=== PATIENT | male | born 1965 | race Caucasian/White ===

== ENCOUNTER → 2016-06-08 | Outpatient (REF) | payer MEDICARE, MEDICAID ==
[~2016-06-08] MED LIST: /ONDA4TA PO; ATIV0.5T OR; BACT800T PO; FERROUS SULFATE PO; FLUC10TA PO; HEPARIN LOCK FLUSH IV; MARINOL PO; MEGE40TA2 OR; MULTCAP PO; NEUR300C PO; PERCOCET PO; SLF IV; TIVI1TAB PO; TRAM50TA2 OR; TYLENOL PO; VITA500C10 PO; VITAMIN C PO; ZITH600T PO; ZOFR20TA PO; ZOFR8TAB PO; [UNRECOGNIZED DRUG - CODE] IV; [UNRECOGNIZED DRUG - CODE] PO; [UNRECOGNIZED DRUG - CODE] PO; [UNRECOGNIZED DRUG - OTHER] PO; prezista PO; truvada PO
[2016-06-08 13:08] LABS: ALBUMIN 4.1 GM/DL (3.2-5.2); ALBUMIN/GLOBULIN RATIO 1.05 (1.00-1.93); ALKALINE PHOSPHATASE 69 U/L (45-117); ALT/SGPT 30 U/L (12-78); ANION GAP 9 MEQ/L (8-16); AST/SGOT 20 U/L (15-37); BILIRUBIN,TOTAL 0.6 MG/DL (0.2-1.0); BLOOD UREA NITROGEN 22 MG/DL (7-18); CALCIUM LEVEL 9.3 MG/DL (8.5-10.1); CARBON DIOXIDE LEVEL 29 MEQ/L (21-32); CHLORIDE LEVEL 101 MEQ/L (98-107); CHOLESTEROL LEVEL 238 MG/DL (<200); GLOMERULAR FILTRATION RATE 42.7 (>56); GLUCOSE, FASTING 91 MG/DL (70-105); POTASSIUM SERUM 3.7 MEQ/L (3.5-5.1); SODIUM LEVEL 139 MEQ/L (136-145); TRIGLYCERIDES LEVEL 158 MG/DL (<150)
[2016-06-09 14:16] LABS: %CD3+CD4+CD8+ 2.3 % (Not Estab.); %CD3+CD4+CD8- 27.4 % (Not Estab.); %CD3+CD4-CD8+ 37.9 % (Not Estab.); %CD3+CD4-CD8- 1.8 % (Not Estab.); ABS CD3+CD4+CD8+ 41 /uL (Not Estab.); ABS CD3+CD4+CD8- 493 /uL (Not Estab.); ABS CD3+CD4-CD8+ 682 /uL (Not Estab.); ABS CD3+CD4-CD8- 32 /uL (Not Estab.); CD4/CD8 NYSDOH RATIO 0.72 (Not Estab.); Eosinophils 1 % (.); HCT 49.8 % (37.5-51.0); Monocytes 11 % (.); Neutrophils 54 % (.); WBC 5.3 x10E3/uL (3.4-10.8)
== END ==
LOC: M SFHCPLAZ 09:29
PROVIDERS: ATTEND Internal Medicine Infectious Disease
DX: B20 Human immunodeficiency virus [HIV] disease (principal); I10 Essential (primary) hypertension; Z23 Encounter for immunization; L60.8 Other nail disorders; R60.0 Localized edema; M47.22 Other spondylosis with radiculopathy, cervical region; Z85.828 Personal history of other malignant neoplasm of skin; A35 Other tetanus; A39.8 Other meningococcal infections; Z11.3 Encounter for screening for infections with a predominantly sexual mode of transmission
CPT/HCPCS: 36415; 80053; 80061; 86360; 86780; 87491; 87536; 87591; 90472; 90715; G0463

== ENCOUNTER → 2016-06-15 | Outpatient (REF) | payer MEDICARE, MEDICAID ==
[2016-06-15 14:09] LABS: CALCIUM LEVEL 9.2 MG/DL (8.5-10.1); CREATININE FOR GFR 1.92 MG/DL (0.70-1.30); GLOMERULAR FILTRATION RATE 39.7 (>56); POTASSIUM SERUM 3.4 MEQ/L (3.5-5.1)
[2016-06-16 16:12] LABS: MICROSCOPIC INDICATED? MAN YES (NO)
[2016-06-16 16:26] LABS: BACTERIA, URINE NONE SEEN; HYALINE CAST, URINE NONE SEEN /lpf (0-1); MICROSCOPIC EXAM PERFORMED; RBC, URINE NONE SEEN /hpf (0-3); SQUAMOUS EPITHELIAL CELL URINE SMALL AMOUNT /hpf (SMALL AMT); WBC, URINE NONE SEEN /hpf (0-3)
== END ==
LOC: M SFHCPLAZ 10:48
PROVIDERS: ATTEND Internal Medicine Infectious Disease
DX: I10 Essential (primary) hypertension (principal)

== ENCOUNTER → 2016-06-15 | Outpatient (CLI) | payer MEDICARE, MEDICAID ==
--- NOTE | 2016-06-16 05:42 | ECHO ---
DATE OF PROCEDURE: 06/15/2016 REFERRING PHYSICIAN: Dr. Joana Atkinson. INDICATION: Localized edema. HEIGHT: 69 inches. WEIGHT: 225 pounds. MEASUREMENTS: Ventricular septum: 1.18 cm Posterior wall: 1.13 cm Left ventricle diastole: 4.5 cm Left atrium: 3.6 cm LVOT: 1.95 cm Aortic valve annulus: 2.1 cm Aortic root: 3.7 cm Proximal ascending aorta: 3.3 cm Inferior vena cava: 1.8 cm (more than 50% respiratory variation). DOPPLER MEASUREMENTS: Aortic valve velocity: 112 cm/s LVOT velocity: 94.0 cm/s LVOT VTI: 19.5 cm Mitral E velocity: 73.4 cm/s Mitral A velocity: 43.5 cm/s Mitral deacceleration time: 190 ms Mild tricuspid regurgitation. Estimated right ventricular systolic pressure 29 mmHg assuming an atrial pressure of 5 mmHg. Mild pulmonic regurgitation. Pulmonary artery systolic pressure 24 mmHg by pulmonary acceleration time method. MITRAL ANNULAR TISSUE DOPPLER: E-prime septal: 6.7 cm/s E-prime lateral: 14.1 cm/s DESCRIPTION: Rhythm was sinus. Image quality was fair. This was a 2D, M-mode, color flow Doppler and pulsed wave Doppler examination and included mitral annular tissue Doppler. No pericardial effusion. CONCLUSIONS: 1. Normal left ventricle internal dimensions and wall thickness. No regional wall motion abnormalities. Normal LV systolic function. LVEF 60% by visual estimate. Normal LV diastolic function. 2. Mild aortic valve sclerosis of a 3-cusp aortic valve. No aortic regurgitation. 3. Suggestive of normal pulmonary artery systolic pressure and estimated right ventricle systolic pressure. Central venous pressure estimated to be 5-10 mmHg. 4. Otherwise normal appearing echocardiogram Doppler.
== END ==
LOC: M CARPUL 08:08
PROVIDERS: ATTEND Internal Medicine Infectious Disease
DX: R60.0 Localized edema (principal); I10 Essential (primary) hypertension
CPT/HCPCS: 36415; 80048; 81000; 93306; G0463

== ENCOUNTER → 2016-06-22 | Outpatient (CLI) | payer MEDICARE, MEDICAID ==
--- NOTE | 2016-06-22 09:00 | REP ---
REASON: Renal disease. COMPARISON: Ultrasound none. FINDINGS: Multiple ultrasonographic images of the right kidney show the right kidney to measure 10.8 x 4.9 x 4.8 cm. The renal cortical echotexture is unremarkable. There are no masses. There is good corticomedullary differentiation. There is no hydronephrosis. There are no perinephric fluid collections. Multiple ultrasonographic images of the right kidney show the left kidney to measure 11.3 x 5.2 x 5.9 cm. The renal cortical echotexture is unremarkable. There are no masses. There is good corticomedullary differentiation. There is no hydronephrosis. There are no perinephric fluid collections. There is a mild increase in the renal sinus fat bilaterally. IMPRESSION: Unremarkable renal ultrasonography. Signed by Dajuan Gillette DO 06/22/2016 09:02 A
== END ==
LOC: M RAD 08:08
PROVIDERS: ATTEND Internal Medicine Infectious Disease
DX: N18.9 Chronic kidney disease, unspecified (principal)

== ENCOUNTER → 2016-07-12 | Outpatient (REF) | payer MEDICARE, MEDICAID ==
[2016-07-12 12:59] LABS: CALCIUM LEVEL 8.5 MG/DL (8.5-10.1); CREATININE FOR GFR 1.55 MG/DL (0.70-1.30); GLOMERULAR FILTRATION RATE 50.8 (>56); POTASSIUM SERUM 4.2 MEQ/L (3.5-5.1)
== END ==
LOC: M SFHCPLAZ 09:55
PROVIDERS: ATTEND Internal Medicine Infectious Disease
DX: B20 Human immunodeficiency virus [HIV] disease (principal); M47.22 Other spondylosis with radiculopathy, cervical region; R63.5 Abnormal weight gain; N18.3 Chronic kidney disease, stage 3 (moderate); I12.9 Hypertensive chronic kidney disease with stage 1 through stage 4 chronic kidney disease, or unspecified chronic kidney disease; E78.2 Mixed hyperlipidemia
CPT/HCPCS: 36415; 80048; G0463

== ENCOUNTER → 2016-10-13 | Outpatient (REF) | payer MEDICARE, MEDICAID ==
[2016-10-13 17:59] LABS: ALBUMIN 3.9 GM/DL (3.2-5.2); ALBUMIN/GLOBULIN RATIO 0.98 (1.00-1.93); ALKALINE PHOSPHATASE 76 U/L (45-117); ALT/SGPT 52 U/L (12-78); AST/SGOT 30 U/L (15-37); BILIRUBIN,DIRECT 0.2 MG/DL (0.0-0.2); BILIRUBIN,TOTAL 0.6 MG/DL (0.2-1.0); COMPLEMENT C3 120 MG/DL (90-180); COMPLEMENT C4 30.4 MG/DL (10-40); TOTAL PROTEIN 7.9 GM/DL (6.4-8.2)
[2016-10-13 19:18] LABS: BACTERIA, URINE NONE SEEN; MICROSCOPIC EXAM PERFORMED; RBC, URINE 0-1 /hpf (0-3); SQUAMOUS EPITHELIAL CELL URINE NONE SEEN /hpf (SMALL AMT)
== END ==
LOC: M LAB REF 17:03
PROVIDERS: ATTEND Internal Medicine Nephrology
DX: N18.3 Chronic kidney disease, stage 3 (moderate) (principal); B20 Human immunodeficiency virus [HIV] disease

== ENCOUNTER → 2016-10-18 | Outpatient (CLI) | payer MEDICARE, MEDICAID ==
--- NOTE | 2016-10-18 14:26 | REP ---
RENAL NUCLEAR SCAN WITH FLOW AND FUNCTION: Following the intravenous administration of 8.8 millicuries technetium, 99m Mag3, immediate flow images are obtained of the kidneys in the posterior projection. There is initially somewhat greater degree of perfusion of the left kidney compared to the right. Delayed renal function images are performed of the kidneys in the posterior projection every minute for a period of 30 minutes. There is bilateral cortical uptake and washout, with bilateral excretion. There is no evidence of hydronephrosis or urinary tract obstruction. Split function is 46% on the left and 54% on the right. [id number] is normal bilaterally at 2 minutes. T-1/2 is normal bilaterally, 5 minutes on the left and 7.1 minutes on the right. Renal function curves are normal in their downward slopes. There is very mild post-void residual in the urinary bladder after voiding. IMPRESSION: Essentially normal renal function bilaterally. No evidence of urinary tract obstruction. Signed by Cristo Ware MD 10/19/2016 08:41 A
== END ==
LOC: M RAD 12:31
PROVIDERS: ATTEND Internal Medicine Nephrology
DX: N18.3 Chronic kidney disease, stage 3 (moderate) (principal); B20 Human immunodeficiency virus [HIV] disease
CPT/HCPCS: 78707; A9562

== ENCOUNTER → 2016-12-06 | Outpatient (REF) | payer MEDICARE, MEDICAID ==
[2016-12-06 13:57] LABS: ALBUMIN 3.9 GM/DL (3.2-5.2); ALBUMIN/GLOBULIN RATIO 1.08 (1.00-1.93); BILIRUBIN,TOTAL 0.6 MG/DL (0.2-1.0); CALCIUM LEVEL 8.5 MG/DL (8.5-10.1); CREATININE FOR GFR 1.66 MG/DL (0.70-1.30); GLOMERULAR FILTRATION RATE 46.9 (>56); POTASSIUM SERUM 4.4 MEQ/L (3.5-5.1); TOTAL PROTEIN 7.5 GM/DL (6.4-8.2)
[2016-12-07 14:12] LABS: Eosinophils 2 % (.); HCT 49.1 % (37.5-51.0); HGB 16.6 g/dL (12.6-17.7); Monocytes 10 % (.); Neutrophils 55 % (.); WBC 5.1 x10E3/uL (3.4-10.8)
== END ==
LOC: M SFHCPLAZ 09:32
PROVIDERS: ATTEND Internal Medicine Infectious Disease
DX: B20 Human immunodeficiency virus [HIV] disease (principal); E78.2 Mixed hyperlipidemia; R63.5 Abnormal weight gain; Z23 Encounter for immunization
CPT/HCPCS: 36415; 80053; 80061; 84443; 86360; 87536; 90472; 90686; G0008; G0463

== ENCOUNTER → 2017-03-31 | Outpatient (REF) | payer MEDICARE, MEDICAID ==
[2017-03-31 12:10] LABS: ALBUMIN 4.1 GM/DL (3.2-5.2); ALBUMIN/GLOBULIN RATIO 1.21 (1.00-1.93); ALKALINE PHOSPHATASE 82 U/L (45-117); ALT/SGPT 76 U/L (12-78); ANION GAP 7 MEQ/L (8-16); AST/SGOT 49 U/L (7-37); BILIRUBIN,TOTAL 0.6 MG/DL (0.2-1.0); BLOOD UREA NITROGEN 19 MG/DL (7-18); CALCIUM LEVEL 8.6 MG/DL (8.5-10.1); CARBON DIOXIDE LEVEL 27 MEQ/L (21-32); CHLORIDE LEVEL 107 MEQ/L (98-107); CHOLESTEROL LEVEL 138 MG/DL (<200); CHOLESTEROL RISK RATIO 3.209 (<5); CREATININE FOR GFR 1.61 MG/DL (0.70-1.30); GLOMERULAR FILTRATION RATE 48.4 (>56); GLUCOSE, FASTING 102 MG/DL (70-105); HDL CHOLESTEROL 43 MG/DL (>40); NON-HDL-C 95 MG/DL; POTASSIUM SERUM 4.5 MEQ/L (3.5-5.1); SODIUM LEVEL 141 MEQ/L (136-145); TOTAL PROTEIN 7.5 GM/DL (6.4-8.2); TRIGLYCERIDES LEVEL 115 MG/DL (<150)
[2017-03-31 14:30] LABS: AMORPHOUS SEDIMENT SMALL (NEGATIVE); APPEARANCE, URINE TURBID (CLEAR); BACTERIA, URINE AUTO NEGATIVE (NEGATIVE); BILIRUBIN, URINE AUTO NEGATIVE (NEGATIVE); BLOOD, URINE BLOOD NEGATIVE (NEGATIVE); COLOR, URINE AMBER (YELLOW); GLUCOSE, URINE (UA) AUTO NEGATIVE (NEGATIVE); KETONE, URINE AUTO NEGATIVE (NEGATIVE); LEUKOCYTE ESTERASE, URINE AUTO NEGATIVE (NEGATIVE); MUCUS, URINE SMALL (NEGATIVE); NITRITE, URINE AUTO NEGATIVE (NEGATIVE); PROTEIN, URINE AUTO NEGATIVE (NEGATIVE); RBC, URINE AUTO 0 /HPF (0-3); SPECIFIC GRAVITY URINE AUTO 1.024 (1.002-1.035); SQUAMOUS EPITHELIAL CELL UR AU 0 /HPF (0-6); UROBILINOGEN, URINE AUTO 0.2 mg/dL (0.0-2.0); WBC, URINE AUTO 0 /HPF (0-3)
[2017-03-31 16:15] LABS: CHLAMYDIA DNA AMPLIFICATION NEGATIVE (NEGATIVE); GC DNA AMPLIFICATION NEGATIVE (NEGATIVE)
[2017-04-02 08:06] LABS: QUANTIFERON GOLD TB Negative (Negative); TB Test (QFT) Antigen 0.02 IU/mL (.); TB Test (QFT) Mitogen >10.00 IU/mL (.); TB Test (QFT) Nil 0.02 IU/mL (.)
[2017-04-05 00:06] LABS: % CD8 Pos Lymph 37.6 % (12.0-35.5); %CD4 Pos Lymphs 33.4 % (30.8-58.5); ABS Eosinophils 0.1 x10E3/uL (0.0-0.4); ABS Lymphs 1.3 x10E3/uL (0.7-3.1); ABS Monocytes 0.5 x10E3/uL (0.1-0.9); ABS Neutophils 3.3 x10E3/uL (1.4-7.0); Abs CD4 Helper 434 /uL (359-1519); Abs CD8 Suppres 489 /uL (109-897); CD4/CD8 Ratio 0.89 (0.92-3.72); Eosinophils 1 % (Not Estab.); HCT 49.6 % (37.5-51.0); HGB 16.6 g/dL (13.0-17.7); HIV-1 RNA PCR QUANT 2 LC550285 <20 copies/mL (.); Immature Grans 0 % (Not Estab.); Lymphocytes 25 % (Not Estab.); MCH 32.1 pg (26.6-33.0); MCHC 33.5 g/dL (31.5-35.7); MCV 96 fL (79-97); Monocytes 10 % (Not Estab.); Neutrophils 63 % (Not Estab.); Platelets 269 x10E3/uL (150-379); RBC 5.17 x10E6/uL (4.14-5.80); RDW 13.9 % (12.3-15.4); WBC 5.3 x10E3/uL (3.4-10.8)
== END ==
LOC: M SFHCPLAZ 08:06
DX: B20 Human immunodeficiency virus [HIV] disease (principal); E78.2 Mixed hyperlipidemia; M47.22 Other spondylosis with radiculopathy, cervical region; R63.5 Abnormal weight gain; I12.9 Hypertensive chronic kidney disease with stage 1 through stage 4 chronic kidney disease, or unspecified chronic kidney disease; N18.3 Chronic kidney disease, stage 3 (moderate); Z23 Encounter for immunization; C44.319 Basal cell carcinoma of skin of other parts of face
CPT/HCPCS: 80053

== ENCOUNTER → 2017-07-25 | Outpatient (REF) | payer MEDICARE, MEDICAID ==
[2017-07-25 12:59] LABS: ALBUMIN 4.1 GM/DL (3.2-5.2); ALBUMIN/GLOBULIN RATIO 1.17 (1.00-1.93); ALKALINE PHOSPHATASE 83 U/L (45-117); ALT/SGPT 35 U/L (12-78); ANION GAP 6 MEQ/L (8-16); AST/SGOT 18 U/L (7-37); BILIRUBIN,TOTAL 0.6 MG/DL (0.2-1.0); BLOOD UREA NITROGEN 22 MG/DL (7-18); CALCIUM LEVEL 9.2 MG/DL (8.5-10.1); CARBON DIOXIDE LEVEL 26 MEQ/L (21-32); CHLORIDE LEVEL 109 MEQ/L (98-107); GLOMERULAR FILTRATION RATE 45.5 (>56); GLUCOSE, FASTING 97 MG/DL (70-100); POTASSIUM SERUM 4.2 MEQ/L (3.5-5.1); SODIUM LEVEL 141 MEQ/L (136-145); TOTAL PROTEIN 7.6 GM/DL (6.4-8.2)
[2017-07-29 00:07] LABS: % CD8 Pos Lymph 37.6 % (12.0-35.5); %CD4 Pos Lymphs 33.9 % (30.8-58.5); ABS Eosinophils 0.1 x10E3/uL (0.0-0.4); ABS Lymphs 1.7 x10E3/uL (0.7-3.1); ABS Monocytes 0.5 x10E3/uL (0.1-0.9); ABS Neutophils 2.9 x10E3/uL (1.4-7.0); Abs CD4 Helper 576 /uL (359-1519); Abs CD8 Suppres 639 /uL (109-897); Eosinophils 1 % (Not Estab.); HCT 49.6 % (37.5-51.0); HGB 16.6 g/dL (13.0-17.7); HIV-1 RNA PCR QUANT 2 LC550285 <20 copies/mL (.); Immature Grans 0 % (Not Estab.); Lymphocytes 32 % (Not Estab.); MCH 32.3 pg (26.6-33.0); MCHC 33.5 g/dL (31.5-35.7); MCV 97 fL (79-97); Monocytes 10 % (Not Estab.); Neutrophils 57 % (Not Estab.); Platelets 232 x10E3/uL (150-379); RBC 5.14 x10E6/uL (4.14-5.80); RDW 13.6 % (12.3-15.4); WBC 5.2 x10E3/uL (3.4-10.8)
== END ==
LOC: M SFHCPLAZ 08:41
DX: B20 Human immunodeficiency virus [HIV] disease (principal); R85.619 Unspecified abnormal cytological findings in specimens from anus
CPT/HCPCS: 80053

== ENCOUNTER → 2017-12-06 | Outpatient (REF) | payer MEDICARE, MEDICAID ==
[2017-12-06 14:01] LABS: APPEARANCE, URINE CLEAR (CLEAR); BACTERIA, URINE AUTO NEGATIVE (NEGATIVE); BILIRUBIN, URINE AUTO NEGATIVE (NEGATIVE); BLOOD, URINE BLOOD NEGATIVE (NEGATIVE); COLOR, URINE YELLOW (YELLOW); GLUCOSE, URINE (UA) AUTO NEGATIVE (NEGATIVE); KETONE, URINE AUTO NEGATIVE (NEGATIVE); LEUKOCYTE ESTERASE, URINE AUTO NEGATIVE (NEGATIVE); MUCUS, URINE SMALL (NEGATIVE); NITRITE, URINE AUTO NEGATIVE (NEGATIVE); PROTEIN, URINE AUTO NEGATIVE (NEGATIVE); RBC, URINE AUTO 3 /HPF (0-3); SQUAMOUS EPITHELIAL CELL UR AU 0 /HPF (0-6); UROBILINOGEN, URINE AUTO 0.2 mg/dL (0.0-2.0); WBC, URINE AUTO 1 /HPF (0-3)
[2017-12-06 15:02] LABS: ALBUMIN 3.9 GM/DL (3.2-5.2); ALBUMIN/GLOBULIN RATIO 1.15 (1.00-1.93); ALKALINE PHOSPHATASE 85 U/L (45-117); ALT/SGPT 34 U/L (12-78); ANION GAP 11 MEQ/L (8-16); AST/SGOT 21 U/L (7-37); BILIRUBIN,TOTAL 0.6 MG/DL (0.2-1.0); BLOOD UREA NITROGEN 18 MG/DL (7-18); CALCIUM LEVEL 8.9 MG/DL (8.5-10.1); CARBON DIOXIDE LEVEL 24 MEQ/L (21-32); CHLORIDE LEVEL 103 MEQ/L (98-107); CHOLESTEROL LEVEL 171 MG/DL (<200); CHOLESTEROL RISK RATIO 4.275 (<5); CREATININE FOR GFR 1.55 MG/DL (0.70-1.30); GLOMERULAR FILTRATION RATE 50.6 (>56); GLUCOSE, FASTING 76 MG/DL (70-100); HDL CHOLESTEROL 40 MG/DL (>40); LDL CHOLESTEROL 88 MG/DL (<100); NON-HDL-C 131 MG/DL; POTASSIUM SERUM 4.1 MEQ/L (3.5-5.1); SODIUM LEVEL 138 MEQ/L (136-145); TOTAL PROTEIN 7.3 GM/DL (6.4-8.2); TRIGLYCERIDES LEVEL 215 MG/DL (<150)
[2017-12-09 00:06] LABS: % CD8 Pos Lymph 35.6 % (12.0-35.5); %CD4 Pos Lymphs 33.1 % (30.8-58.5); ABS Eosinophils 0.1 x10E3/uL (0.0-0.4); ABS Lymphs 1.5 x10E3/uL (0.7-3.1); ABS Monocytes 0.5 x10E3/uL (0.1-0.9); Abs CD4 Helper 497 /uL (359-1519); Abs CD8 Suppres 534 /uL (109-897); CD4/CD8 Ratio 0.93 (0.92-3.72); Eosinophils 2 % (Not Estab.); HCT 48.8 % (37.5-51.0); HGB 16.6 g/dL (13.0-17.7); HIV-1 RNA PCR QUANT 2 LC550285 <20 copies/mL (.); Immature Grans 0 % (Not Estab.); Lymphocytes 30 % (Not Estab.); MCV 94 fL (79-97); Monocytes 10 % (Not Estab.); Neutrophils 58 % (Not Estab.); Platelets 248 x10E3/uL (150-379); RBC 5.18 x10E6/uL (4.14-5.80); RDW 13.9 % (12.3-15.4); WBC 5.1 x10E3/uL (3.4-10.8)
== END ==
LOC: M SFHCPLAZ 12:15
DX: B20 Human immunodeficiency virus [HIV] disease (principal); I12.9 Hypertensive chronic kidney disease with stage 1 through stage 4 chronic kidney disease, or unspecified chronic kidney disease; E78.2 Mixed hyperlipidemia; Z23 Encounter for immunization
CPT/HCPCS: 84443

== ENCOUNTER → 2018-03-21 | Outpatient (REF) | payer MEDICARE, MEDICAID ==
[~2018-03-21] MED LIST changes: +ALIN1SUS2 PO; -ZOFR20TA PO; +ZOFR4TAB16 PO; -[UNRECOGNIZED DRUG - CODE] PO
[2018-03-21 13:13] LABS: ALBUMIN 3.9 GM/DL (3.2-5.2); BILIRUBIN,TOTAL 0.6 MG/DL (0.2-1.0); CALCIUM LEVEL 9.1 MG/DL (8.5-10.1); CREATININE FOR GFR 1.69 MG/DL (0.70-1.30); GLOMERULAR FILTRATION RATE 45.6 (>56); POTASSIUM SERUM 4.4 MEQ/L (3.5-5.1); TOTAL PROTEIN 7.7 GM/DL (6.4-8.2)
[2018-03-21 16:21] LABS: APPEARANCE, URINE HAZY (CLEAR); BACTERIA, URINE AUTO NEGATIVE (NEGATIVE); BILIRUBIN, URINE AUTO NEGATIVE (NEGATIVE); BLOOD, URINE BLOOD NEGATIVE (NEGATIVE); CALCIUM OXALATE CRYSTALS SMALL; COLOR, URINE AMBER (YELLOW); GLUCOSE, URINE (UA) AUTO NEGATIVE (NEGATIVE); KETONE, URINE AUTO NEGATIVE (NEGATIVE); LEUKOCYTE ESTERASE, URINE AUTO NEGATIVE (NEGATIVE); MUCUS, URINE SMALL (NEGATIVE); NITRITE, URINE AUTO NEGATIVE (NEGATIVE); PROTEIN, URINE AUTO 1+ mg/dL (NEGATIVE); RBC, URINE AUTO 2 /HPF (0-3); SQUAMOUS EPITHELIAL CELL UR AU 0 /HPF (0-6); UROBILINOGEN, URINE AUTO 0.2 mg/dL (0.0-2.0); WBC, URINE AUTO 1 /HPF (0-3)
[2018-03-22 10:24] LABS: HEPATITIS C VIRUS ABY INDEX 0.1 INDEX (<0.8)
[2018-03-24 00:06] LABS: % CD8 Pos Lymph 35.9 % (12.0-35.5); %CD4 Pos Lymphs 33.7 % (30.8-58.5); ABS Eosinophils 0.1 x10E3/uL (0.0-0.4); ABS Lymphs 1.7 x10E3/uL (0.7-3.1); ABS Monocytes 0.6 x10E3/uL (0.1-0.9); ABS Neutophils 4.9 x10E3/uL (1.4-7.0); Abs CD4 Helper 573 /uL (359-1519); Abs CD8 Suppres 610 /uL (109-897); CD4/CD8 Ratio 0.94 (0.92-3.72); Eosinophils 1 % (Not Estab.); HCT 50.4 % (37.5-51.0); HGB 17.3 g/dL (13.0-17.7); HIV-1 RNA PCR QUANT 2 LC550285 <20 copies/mL (.); Immature Grans 0 % (Not Estab.); Lymphocytes 24 % (Not Estab.); MCH 32.7 pg (26.6-33.0); MCHC 34.3 g/dL (31.5-35.7); MCV 95 fL (79-97); Monocytes 8 % (Not Estab.); Neutrophils 67 % (Not Estab.); Platelets 254 x10E3/uL (150-379); RBC 5.29 x10E6/uL (4.14-5.80); RDW 13.8 % (12.3-15.4); WBC 7.4 x10E3/uL (3.4-10.8)
== END ==
LOC: M SFHCPLAZ 10:20
PROVIDERS: ATTEND Internal Medicine Infectious Disease
DX: B20 Human immunodeficiency virus [HIV] disease (principal)
CPT/HCPCS: 36415; 80053; 81001; 86360; 86480; 86803; 87536; G0463

== ENCOUNTER → 2018-06-21 | Outpatient (REF) | payer MEDICARE, MEDICAID ==
[~2018-06-21] MED LIST changes: -/ONDA4TA PO; +ONDA-1 PO; +ONDA-227 PO; -ZOFR8TAB PO
== END ==
LOC: M SFHCPLAZ 17:10
PROVIDERS: ATTEND Dermatology
DX: L02.91 Cutaneous abscess, unspecified (principal)

== ENCOUNTER → 2018-09-19 | Outpatient (REF) | payer MEDICARE, MEDICAID ==
[2018-09-19 13:59] LABS: APPEARANCE, URINE CLEAR (CLEAR); BACTERIA, URINE AUTO NEGATIVE (NEGATIVE); BILIRUBIN, URINE AUTO NEGATIVE (NEGATIVE); BLOOD, URINE BLOOD NEGATIVE (NEGATIVE); COLOR, URINE YELLOW (YELLOW); GLUCOSE, URINE (UA) AUTO NEGATIVE (NEGATIVE); KETONE, URINE AUTO NEGATIVE (NEGATIVE); LEUKOCYTE ESTERASE, URINE AUTO NEGATIVE (NEGATIVE); MUCUS, URINE SMALL (NEGATIVE); NITRITE, URINE AUTO NEGATIVE (NEGATIVE); PROTEIN, URINE AUTO NEGATIVE (NEGATIVE); RBC, URINE AUTO 0 /HPF (0-3); SPECIFIC GRAVITY URINE AUTO 1.025 (1.002-1.035); SQUAMOUS EPITHELIAL CELL UR AU 0 /HPF (0-6); UROBILINOGEN, URINE AUTO 0.2 mg/dL (0.0-2.0); WBC, URINE AUTO 1 /HPF (0-3)
[2018-09-19 14:18] LABS: ALBUMIN 3.6 GM/DL (3.2-5.2); ALT/SGPT 22 U/L (12-78); BILIRUBIN,TOTAL 0.5 MG/DL (0.2-1.0); BLOOD UREA NITROGEN 16 MG/DL (7-18); CALCIUM LEVEL 8.8 MG/DL (8.5-10.1); CARBON DIOXIDE LEVEL 28 MEQ/L (21-32); CHLORIDE LEVEL 108 MEQ/L (98-107); CREATININE FOR GFR 1.73 MG/DL (0.70-1.30); GLOMERULAR FILTRATION RATE 44.4 (>56); GLUCOSE, FASTING 95 MG/DL (70-100); POTASSIUM SERUM 4.6 MEQ/L (3.5-5.1); SODIUM LEVEL 141 MEQ/L (136-145); TOTAL PROTEIN 7.5 GM/DL (6.4-8.2)
[2018-09-19 15:58] LABS: CHLAMYDIA DNA AMPLIFICATION NEGATIVE (NEGATIVE); GC DNA AMPLIFICATION NEGATIVE (NEGATIVE)
[2018-09-22 14:09] LABS: % CD8 Pos Lymph 36.9 % (12.0-35.5); %CD4 Pos Lymphs 33.9 % (30.8-58.5); ABS Eosinophils 0.1 x10E3/uL (0.0-0.4); ABS Lymphs 1.5 x10E3/uL (0.7-3.1); ABS Monocytes 0.6 x10E3/uL (0.1-0.9); ABS Neutophils 3.3 x10E3/uL (1.4-7.0); Abs CD4 Helper 509 /uL (359-1519); Abs CD8 Suppres 554 /uL (109-897); CD4/CD8 Ratio 0.92 (0.92-3.72); CHLAMYDIA PHARYNGEAL APTIMA Negative (Negative); CHLAMYDIA RECTAL APTIMA Positive (Negative); Eosinophils 2 % (Not Estab.); GC PHARYNGEAL APTIMA Negative (Negative); GC RECTAL APTIMA Negative (Negative); HCT 46.4 % (37.5-51.0); HGB 15.3 g/dL (13.0-17.7); HIV-1 RNA PCR QUANT 2 LC550285 <20 copies/mL (.); Immature Grans 0 % (Not Estab.); Lymphocytes 28 % (Not Estab.); MCV 94 fL (79-97); Monocytes 11 % (Not Estab.); Neutrophils 59 % (Not Estab.); Platelets 266 x10E3/uL (150-450); RBC 4.94 x10E6/uL (4.14-5.80); RDW 14.3 % (12.3-15.4); WBC 5.5 x10E3/uL (3.4-10.8)
== END ==
LOC: M SFHCPLAZ 09:03
PROVIDERS: ATTEND Internal Medicine Infectious Disease
DX: B20 Human immunodeficiency virus [HIV] disease (principal); I12.9 Hypertensive chronic kidney disease with stage 1 through stage 4 chronic kidney disease, or unspecified chronic kidney disease
CPT/HCPCS: 36415; 80053; 81001; 86360; 86780; 87491; 87536; 87591; 88108; G0463

== ENCOUNTER 2018-10-18 15:07 | Emergency (ER) | payer MEDICARE, MEDICAID ==
[~2018-10-18] VITALS: Ht 175.3 cm; Wt 101.9 kg
[2018-10-18] MEDS ORDERED: TRAM50TA2 (15:24)
[2018-10-18 16:03] VITALS: BP 139/99
--- NOTE | 2018-10-18 19:42 | REP ---
LEFT FOOT, FOUR VIEWS: There is no evidence of an acute fracture, dislocation or intrinsic bone disease. IMPRESSION: No fracture or dislocation. Electronically Signed by Cristo Ware MD 10/19/2018 10:07 A
== END 2018-10-18 16:05 | disposition home or self-care (01) ==
LOC: M ED 15:07
DX: S93.602A Unspecified sprain of left foot, initial encounter (principal); X58.XXXA Exposure to other specified factors, initial encounter; Y92.89 Other specified places as the place of occurrence of the external cause; B20 Human immunodeficiency virus [HIV] disease; Z79.899 Other long term (current) drug therapy; Z79.891 Long term (current) use of opiate analgesic

== ENCOUNTER → 2019-03-27 | Outpatient (REF) | payer MEDICARE, MEDICAID ==
[~2019-03-27] MED LIST changes: +TRAM50TA2
[2019-03-27 10:34] LABS: APPEARANCE, URINE HAZY (CLEAR); BACTERIA, URINE AUTO NEGATIVE (NEGATIVE); BILIRUBIN, URINE AUTO NEGATIVE (NEGATIVE); BLOOD, URINE BLOOD NEGATIVE (NEGATIVE); COLOR, URINE YELLOW (YELLOW); GLUCOSE, URINE (UA) AUTO NEGATIVE (NEGATIVE); KETONE, URINE AUTO NEGATIVE (NEGATIVE); LEUKOCYTE ESTERASE, URINE AUTO NEGATIVE (NEGATIVE); MUCUS, URINE SMALL (NEGATIVE); NITRITE, URINE AUTO NEGATIVE (NEGATIVE); PROTEIN, URINE AUTO NEGATIVE (NEGATIVE); RBC, URINE AUTO 2 /HPF (0-3); SPECIFIC GRAVITY URINE AUTO 1.028 (1.002-1.035); SQUAMOUS EPITHELIAL CELL UR AU 0 /HPF (0-6); UROBILINOGEN, URINE AUTO 0.2 mg/dL (0.0-2.0); WBC, URINE AUTO 1 /HPF (0-3)
[2019-03-27 11:10] LABS: ALBUMIN 3.8 GM/DL (3.2-5.2); BILIRUBIN,TOTAL 0.5 MG/DL (0.2-1.0); CALCIUM LEVEL 8.6 MG/DL (8.5-10.1); CHOLESTEROL RISK RATIO 3.368 (<5); CREATININE FOR GFR 1.68 MG/DL (0.70-1.30); GLOMERULAR FILTRATION RATE 45.7 (>56); POTASSIUM SERUM 4.2 MEQ/L (3.5-5.1); TOTAL PROTEIN 7.4 GM/DL (6.4-8.2)
[2019-03-30 00:07] LABS: % CD8 Pos Lymph 39.4 % (12.0-35.5); %CD4 Pos Lymphs 30.4 % (30.8-58.5); ABS Eosinophils 0.1 x10E3/uL (0.0-0.4); ABS Lymphs 1.7 x10E3/uL (0.7-3.1); ABS Monocytes 0.6 x10E3/uL (0.1-0.9); ABS Neutophils 2.9 x10E3/uL (1.4-7.0); Abs CD4 Helper 517 /uL (359-1519); Abs CD8 Suppres 670 /uL (109-897); CD4/CD8 Ratio 0.77 (0.92-3.72); Eosinophils 2 % (Not Estab.); HCT 45.5 % (37.5-51.0); HGB 15.9 g/dL (13.0-17.7); HIV-1 RNA PCR QUANT 2 LC550285 <20 copies/mL (.); Immature Grans 0 % (Not Estab.); Lymphocytes 32 % (Not Estab.); MCH 31.9 pg (26.6-33.0); MCHC 34.9 g/dL (31.5-35.7); MCV 91 fL (79-97); Monocytes 11 % (Not Estab.); Neutrophils 55 % (Not Estab.); Platelets 252 x10E3/uL (150-450); RBC 4.98 x10E6/uL (4.14-5.80); RDW 13.9 % (11.6-15.4); WBC 5.4 x10E3/uL (3.4-10.8)
== END ==
LOC: M SFHCPLAZ 08:17
PROVIDERS: ATTEND Internal Medicine Infectious Disease
DX: B20 Human immunodeficiency virus [HIV] disease (principal); E78.2 Mixed hyperlipidemia
CPT/HCPCS: 36415; 80053; 80061; 81001; 86360; 86480; 87536; G0463

== ENCOUNTER 2019-05-24 07:36 | Day surgery (SDC) | payer MEDICARE, MEDICAID ==
[~2019-05-24] VITALS: Ht 175.3 cm; Wt 101.2 kg
[~2019-05-24 07:36] MED LIST changes: +ATOR1TAB21 PO; +FLON1SPR NARES; +LOSA50TA88 PO; +NS 1,000 ML IV ONE; -TRAM50TA2; +TRAM50TA2 PO; +TRIU1TAB PO; +VITA500C24 PO; +[UNRECOGNIZED DRUG - OTHER] TOP
[2019-05-24] MEDS ORDERED: propofoL 200 MG/20 ML VIAL As Ordered ONE ×3 (08:23→10:07)
[2019-05-24] MEDS ORDERED: LIDOCAINE 2% INJ 100 MG/5 ML SDV (FOR ANES.) As Ordered ONE (08:23)
--- NOTE | 2019-05-24 10:23 | ROOR ---
Patient Name: Wayne Manning Procedure Date: 05/24/2019 9:37 AM Date of : 1965 Age: 54 Room: [facility] Gender: Male Note Status: Finalized Procedure: Colonoscopy Indications: Hematochezia, Remote Hx CMV enterocolitis Providers: Jose Rafael CERVANTES MD Referring MD: Joana KELLOGG MD. Requesting Provider: Medicines: Monitored Anesthesia Care Complications: No immediate complications. Procedure: Pre-Anesthesia Assessment: - The heart rate, respiratory rate, oxygen saturations, blood pressure, adequacy of pulmonary ventilation, and response to care were monitored throughout the procedure. The Colonoscope was introduced through the anus and advanced to 6 cm into the ileum. The colonoscopy was performed without difficulty. The patient tolerated the procedure well. The quality of the bowel preparation was good. Findings: The perianal and digital rectal examinations were normal. The terminal ileum contained many semi-sessile polyps. The polyps were 5 mm in diameter. Biopsies were taken with a cold forceps for histology. An 8 mm polypoid lesion was found at the appendiceal orifice. The lesion was semi-sessile. This was biopsied with a cold forceps for histology. A mild stenosis was found in the recto-sigmoid colon and was traversed. Biopsies were taken with a cold forceps for histology. Multiple ulcers were found in the recto-sigmoid colon. Biopsies were taken with a cold forceps for histology. Internal hemorrhoids were found during retroflexion. The hemorrhoids were medium-sized. A scattered area of granular mucosa was found at the anus. Biopsies were taken with a cold forceps for histology. Impression: - Many 5-7 mm polyps/pseudopolyps in the terminal ileum. Biopsied. - 8-10 mm Polyp/pseudopolyp at the appendiceal orifice. Biopsied. - Large circumferential shallow mucosal ulcer with mild stenosis in the recto-sigmoid colon. Biopsied. - Granularity at the anus. Biopsied. - Internal hemorrhoids. Recommendation: - Telephone endoscopist for pathology results in 2 weeks. - Use fiber, for example Citrucel, Fibercon, Konsyl or Metamucil. - Miralax 1 capful (17 grams) in 8 ounces of water PO daily. Jose Rafael Cervantes MD Jose Rafael CERVANTES MD 05/24/2019 10:22:42 AM Electronically signed by Jose Rafael CERVANTES MD Number of Addenda: 0 Note Initiated On: 05/24/2019 9:37 AM Estimated Blood Loss: Estimated blood loss: none.
[2019-05-24 10:35] VITALS: BP 160/92
== END 2019-05-24 10:45 | disposition home or self-care (01) ==
LOC: M OPP 07:36
PROVIDERS: ATTEND Internal Medicine Gastroenterology
DX: K56.699 Other intestinal obstruction unspecified as to partial versus complete obstruction (principal); K63.3 Ulcer of intestine; K64.8 Other hemorrhoids; K62.82 Dysplasia of anus; K92.1 Melena; B20 Human immunodeficiency virus [HIV] disease; N18.3 Chronic kidney disease, stage 3 (moderate); Z79.891 Long term (current) use of opiate analgesic; Z79.899 Other long term (current) drug therapy

== ENCOUNTER → 2019-07-09 | Outpatient (REF) | payer MEDICARE, MEDICAID ==
[~2019-07-09] MED LIST changes: -NS 1,000 ML IV ONE
[2019-07-09 10:14] LABS: BASO % 0.4 % (0.0-1.0); EOS % 0.4 % (0.0-3.0); HEMATOCRIT 46.9 % (42.0-52.0); HEMOGLOBIN 15.8 g/dl (13.5-17.5); LYMPH # 2.1 10^3/uL (1.5-5.0); MEAN CORPUSCULAR HGB CONC 33.7 g/dl (32.0-36.5); MEAN CORPUSCULAR VOLUME 95.1 fl (80.0-96.0); MONO # 0.1 10^3/uL (0.0-0.8); MONO % 2.5 % (0.0-5.0); NEUTROPHILS # 2.2 10^3/uL (1.5-8.5); NEUTROPHILS % 48.5 % (36.0-66.0); PLATELET COUNT, AUTOMATED 334 10^3/uL (150-450); RED BLOOD COUNT 4.93 10^6/uL (4.30-6.10); WHITE BLOOD COUNT 4.5 10^3/uL (4.0-10.0)
[2019-07-09 10:29] LABS: ALBUMIN 3.8 GM/DL (3.2-5.2); BILIRUBIN,TOTAL 0.5 MG/DL (0.2-1.0); CALCIUM LEVEL 9.1 MG/DL (8.5-10.1); CREATININE FOR GFR 1.56 MG/DL (0.70-1.30); GLOMERULAR FILTRATION RATE 49.8 (>56); POTASSIUM SERUM 3.9 MEQ/L (3.5-5.1); TOTAL PROTEIN 7.2 GM/DL (6.4-8.2)
== END ==
LOC: M SFHCPLAZ 08:35
PROVIDERS: ATTEND Internal Medicine Infectious Disease
DX: B25.9 Cytomegaloviral disease, unspecified (principal)

== ENCOUNTER → 2019-09-24 | Outpatient (REF) | payer MEDICARE, MEDICAID ==
[2019-09-24 11:39] LABS: ALBUMIN 3.8 GM/DL (3.2-5.2); BILIRUBIN,TOTAL 0.4 MG/DL (0.2-1.0); CALCIUM LEVEL 8.6 MG/DL (8.5-10.1); CREATININE FOR GFR 1.64 MG/DL (0.70-1.30); TOTAL PROTEIN 7.2 GM/DL (6.4-8.2)
[2019-09-27 18:09] LABS: % CD8 Pos Lymph 37.9 % (12.0-35.5); %CD4 Pos Lymphs 33.3 % (30.8-58.5); ABS Eosinophils 0.1 x10E3/uL (0.0-0.4); ABS Lymphs 1.5 x10E3/uL (0.7-3.1); ABS Monocytes 0.6 x10E3/uL (0.1-0.9); ABS Neutophils 2.9 x10E3/uL (1.4-7.0); Abs CD4 Helper 500 /uL (359-1519); Abs CD8 Suppres 569 /uL (109-897); CD4/CD8 Ratio 0.88 (0.92-3.72); Eosinophils 2 % (Not Estab.); HCT 44.7 % (37.5-51.0); HGB 15.6 g/dL (13.0-17.7); HIV-1 RNA PCR QUANT 2 LC550285 <20 copies/mL (.); Immature Grans 0 % (Not Estab.); Lymphocytes 30 % (Not Estab.); MCH 33.5 pg (26.6-33.0); MCHC 34.9 g/dL (31.5-35.7); MCV 96 fL (79-97); Monocytes 11 % (Not Estab.); Neutrophils 56 % (Not Estab.); Platelets 257 x10E3/uL (150-450); RBC 4.66 x10E6/uL (4.14-5.80); RDW 13.3 % (11.6-15.4); WBC 5.1 x10E3/uL (3.4-10.8)
== END ==
LOC: M SFHCPLAZ 08:16
PROVIDERS: ATTEND Internal Medicine Infectious Disease
DX: B20 Human immunodeficiency virus [HIV] disease (principal)
CPT/HCPCS: 36415; 80053; 86360; 87536; G0463

== ENCOUNTER → 2020-01-22 | Outpatient (REF) | payer MEDICARE, MEDICAID ==
[2020-01-22 11:15] LABS: ALBUMIN 3.7 GM/DL (3.2-5.2); BILIRUBIN,TOTAL 0.5 MG/DL (0.2-1.0); CALCIUM LEVEL 9.1 MG/DL (8.5-10.1); CREATININE FOR GFR 1.59 MG/DL (0.70-1.30); GLOMERULAR FILTRATION RATE 48.7 (>56); POTASSIUM SERUM 4.4 MEQ/L (3.5-5.1); TOTAL PROTEIN 7.1 GM/DL (6.4-8.2)
[2020-01-24 14:08] LABS: % CD8 Pos Lymph 37.2 % (12.0-35.5); %CD4 Pos Lymphs 34.3 % (30.8-58.5); ABS Eosinophils 0.1 x10E3/uL (0.0-0.4); ABS Lymphs 1.4 x10E3/uL (0.7-3.1); ABS Monocytes 0.5 x10E3/uL (0.1-0.9); ABS Neutophils 2.8 x10E3/uL (1.4-7.0); Abs CD4 Helper 480 /uL (359-1519); Abs CD8 Suppres 521 /uL (109-897); CD4/CD8 Ratio 0.92 (0.92-3.72); Eosinophils 2 % (Not Estab.); HCT 46.2 % (37.5-51.0); HGB 16.2 g/dL (13.0-17.7); HIV-1 RNA PCR QUANT 2 LC550285 <20 copies/mL (.); Immature Grans 0 % (Not Estab.); Lymphocytes 29 % (Not Estab.); MCH 32.9 pg (26.6-33.0); MCHC 35.1 g/dL (31.5-35.7); MCV 94 fL (79-97); Monocytes 11 % (Not Estab.); Neutrophils 57 % (Not Estab.); Platelets 270 x10E3/uL (150-450); RBC 4.93 x10E6/uL (4.14-5.80); RDW 12.7 % (11.6-15.4); WBC 4.9 x10E3/uL (3.4-10.8)
== END ==
LOC: M SFHCPLAZ 08:54
PROVIDERS: ATTEND Internal Medicine Infectious Disease
DX: B20 Human immunodeficiency virus [HIV] disease (principal); Z23 Encounter for immunization
CPT/HCPCS: 36415; 80053; 86360; 87536; 90682; G0008; G0463

== ENCOUNTER → 2020-04-03 | Outpatient (REF) | payer MEDICARE, MEDICAID ==
[~2020-04-03] MED LIST changes: +THERTAB52 PO
== END ==
LOC: M SFHCPLAZ 17:04
PROVIDERS: ATTEND Internal Medicine Infectious Disease
DX: Z01.818 Encounter for other preprocedural examination (principal); Z11.52 Encounter for screening for COVID-19
CPT/HCPCS: 36415; 80048; 85025; G0463; U0003

== ENCOUNTER → 2020-04-03 | Outpatient (REF) | payer MEDICARE, MEDICAID ==
[2020-04-03 15:20] LABS: BASO % 0.6 % (0.0-1.0); EOS # 0.2 10^3/uL (0.0-0.5); HEMATOCRIT 49.6 % (42.0-52.0); HEMOGLOBIN 16.5 g/dl (13.5-17.5); LYMPH # 1.6 10^3/uL (1.5-5.0); LYMPH % 23.9 % (24.0-44.0); MEAN CORPUSCULAR HEMOGLOBIN 31.9 pg (27.0-33.0); MEAN CORPUSCULAR HGB CONC 33.3 g/dl (32.0-36.5); MEAN CORPUSCULAR VOLUME 95.8 fl (80.0-96.0); MONO # 0.7 10^3/uL (0.0-0.8); MONO % 11.1 % (0.0-5.0); NEUTROPHILS # 4.1 10^3/uL (1.5-8.5); PLATELET COUNT, AUTOMATED 304 10^3/uL (150-450); RED BLOOD COUNT 5.18 10^6/uL (4.30-6.10); WHITE BLOOD COUNT 6.7 10^3/uL (4.0-10.0)
[2020-04-03 15:23] LABS: CALCIUM LEVEL 9.8 MG/DL (8.5-10.1); CREATININE FOR GFR 1.72 MG/DL (0.70-1.30); GLOMERULAR FILTRATION RATE 44.3 (>56); POTASSIUM SERUM 4.8 MEQ/L (3.5-5.1)
== END ==
LOC: M SFHCPLAZ 10:11
PROVIDERS: ATTEND Internal Medicine Infectious Disease
DX: B20 Human immunodeficiency virus [HIV] disease (principal); I10 Essential (primary) hypertension

== ENCOUNTER 2020-04-08 08:35 | Day surgery (SDC) | payer MEDICARE, MEDICAID ==
[~2020-04-08] VITALS: Ht 175.3 cm; Wt 104.5 kg
[~2020-04-08 08:35] MED LIST changes: +ACETAMINOPHEN 1000MG 100ML IV BTL (OFIRMEV) (J0131 PER 10MG) As Ordered ONE; +KETOROLAC 60MG 2ML VIAL As Ordered ONE; +LIDOCAINE 2% 100MG/5ML SDV (FOR ANES.) As Ordered ONE; +LIDOCAINE 2% JELLY 5ML TUBE As Ordered ONE; +LR 1,000 ML IV ONE; +MIDAZOLAM INJ 2MG/2ML VIAL (J2250 PER 1MG) As Ordered ONE; +ONDANSETRON 4MG/2ML VIAL As Ordered ONE; +ROCURONIUM BROMIDE 50 MG/5 ML VIAL As Ordered ONE; +SUGAMMADEX SODIUM 500 MG/5 ML VIAL (BRIDION) As Ordered ONE; +ceFAZolin SOD 2 GM in IV 1 EA IV ONE; +dexameTHASONE 4 MG/ML 1ML VIAL (J1100 PER 1MG) As Ordered ONE; +fentaNYL 100 MCG/2 ML INJECTION (J3010) As Ordered ONE; +propofoL 200 MG/20 ML VIAL As Ordered ONE
[2020-04-08] MEDS ORDERED: BUPIVACAINE/EPIN 0.25% 30 ML VIAL As Ordered ONE (10:47)
[2020-04-08] MEDS ORDERED: BUPIVACAINE HCL 0.25% 10ML VIAL As Ordered ONE (10:48)
[2020-04-08] MEDS ORDERED: BUPIVACAINE LIPOSOME/PF 1.3% 20ML VIAL (13.3MG/ML)(EXPAREL)(C9290 PER1MG) As Ordered ONE (10:48)
[2020-04-08] MEDS ORDERED: oxyCODONE 5MG TAB As Ordered ONE (12:29)
[2020-04-08] MEDS ORDERED: ONDANSETRON 4MG/2ML VIAL IV PRN (12:30)
[2020-04-08] MEDS ORDERED: fentaNYL 100 MCG/2 ML INJECTION (J3010) IV PRN (12:30)
[2020-04-08] MEDS ORDERED: NS 1,000 ML IV SCH (12:30)
[2020-04-08] MEDS ORDERED: METOCLOPRAMIDE INJ 10MG/2ML VIAL (J2765 PER 1) IV PRN (12:30)
[2020-04-08] MEDS ORDERED: oxyCODONE 5MG TAB PO PRN (12:30)
[2020-04-08] MEDS ORDERED: LR 1,000 ML IV SCH (12:30)
[2020-04-08] MEDS ORDERED: MEPERIDINE INJ 25 MG/ML VIAL (J2175) IV PRN (12:30)
[2020-04-08] MEDS ORDERED: traMADol 50 MG TAB PO PRN (12:45)
[2020-04-08 14:00] VITALS: BP 119/72
--- NOTE | 2020-04-20 16:11 | RO ---
OPERATIVE NOTE DATE OF OPERATION: 04/08/2020 PREOPERATIVE DIAGNOSIS: Umbilical hernia. POSTOPERATIVE DIAGNOSIS: Umbilical hernia. PROCEDURE: Umbilical hernia repair. SURGEON: Reji Robins M.D. BULB ASSEMBLER: ANESTHESIA: General endotracheal anesthesia. ESTIMATED BLOOD LOSS: Minimal. FLUIDS: Crystalloid. DESCRIPTION OF PROCEDURE: The patient was brought to the operating room and was given general anesthesia. After adequate anesthesia and preoperative antibiotics were given, the patient was prepped and draped in the usual sterile fashion. Next, a supraumbilical incision was made with a skin knife. Blunt dissection was carried down to fascia. The fascia was cleared of surrounding tissue down surrounding the hernia itself all the way to the level of the fascia. Once the fascial edges were visualized, a hernia sac was transected down to the level of the fascia and that was a very small fascial defect. This was closed with [id number] 0 Ethibond. 3-0 Vicryl was used to approximate the dermis. 4-0 Vicryl was used to approximate the skin. Steri-Strips and a dry sterile dressing were applied. The patient was brought to the recovery room awake, alert, hemodynamically stable. Sponge and needle counts were correct x2.
== END 2020-04-08 14:08 | disposition home or self-care (01) ==
LOC: M SDC 08:35
PROVIDERS: ATTEND Surgery
DX: K42.9 Umbilical hernia without obstruction or gangrene (principal); I12.9 Hypertensive chronic kidney disease with stage 1 through stage 4 chronic kidney disease, or unspecified chronic kidney disease; N18.30 Chronic kidney disease, stage 3 unspecified; B20 Human immunodeficiency virus [HIV] disease; B25.9 Cytomegaloviral disease, unspecified; J30.2 Other seasonal allergic rhinitis; M47.22 Other spondylosis with radiculopathy, cervical region; Z85.828 Personal history of other malignant neoplasm of skin; C44.319 Basal cell carcinoma of skin of other parts of face; Z79.899 Other long term (current) drug therapy
CPT/HCPCS: 49585; 88302; C9290; J0131; J1100; J1885; J2250; J2405; J3010

== ENCOUNTER → 2020-05-19 | Outpatient (REF) | payer MEDICARE, MEDICAID ==
[~2020-05-19] MED LIST changes: -ACETAMINOPHEN 1000MG 100ML IV BTL (OFIRMEV) (J0131 PER 10MG) As Ordered ONE; -KETOROLAC 60MG 2ML VIAL As Ordered ONE; -LIDOCAINE 2% 100MG/5ML SDV (FOR ANES.) As Ordered ONE; -LIDOCAINE 2% JELLY 5ML TUBE As Ordered ONE; -LR 1,000 ML IV ONE; -MIDAZOLAM INJ 2MG/2ML VIAL (J2250 PER 1MG) As Ordered ONE; -ONDANSETRON 4MG/2ML VIAL As Ordered ONE; -ROCURONIUM BROMIDE 50 MG/5 ML VIAL As Ordered ONE; -SUGAMMADEX SODIUM 500 MG/5 ML VIAL (BRIDION) As Ordered ONE; -ceFAZolin SOD 2 GM in IV 1 EA IV ONE; -dexameTHASONE 4 MG/ML 1ML VIAL (J1100 PER 1MG) As Ordered ONE; -fentaNYL 100 MCG/2 ML INJECTION (J3010) As Ordered ONE; -propofoL 200 MG/20 ML VIAL As Ordered ONE
[2020-05-19 10:55] LABS: ALBUMIN 3.8 GM/DL (3.2-5.2); BILIRUBIN,TOTAL 0.4 MG/DL (0.2-1.0); CALCIUM LEVEL 9.1 MG/DL (8.5-10.1); CREATININE FOR GFR 1.69 MG/DL (0.70-1.30); GLOMERULAR FILTRATION RATE 45.2 (>56); POTASSIUM SERUM 4.7 MEQ/L (3.5-5.1); TOTAL PROTEIN 7.3 GM/DL (6.4-8.2)
[2020-05-21 12:10] LABS: % CD8 Pos Lymph 35.9 % (12.0-35.5); %CD4 Pos Lymphs 34.6 % (30.8-58.5); ABS Eosinophils 0.2 x10E3/uL (0.0-0.4); ABS Lymphs 1.4 x10E3/uL (0.7-3.1); ABS Monocytes 0.5 x10E3/uL (0.1-0.9); ABS Neutophils 2.6 x10E3/uL (1.4-7.0); Abs CD4 Helper 484 /uL (359-1519); Abs CD8 Suppres 503 /uL (109-897); CD4/CD8 Ratio 0.96 (0.92-3.72); Eosinophils 4 % (Not Estab.); HGB 16.2 g/dL (13.0-17.7); HIV-1 RNA PCR QUANT 2 LC550285 <20 copies/mL (.); Immature Grans 0 % (Not Estab.); Lymphocytes 29 % (Not Estab.); MCH 31.8 pg (26.6-33.0); MCHC 33.8 g/dL (31.5-35.7); MCV 94 fL (79-97); Monocytes 11 % (Not Estab.); Neutrophils 55 % (Not Estab.); Platelets 304 x10E3/uL (150-450); RBC 5.09 x10E6/uL (4.14-5.80); RDW 12.3 % (11.6-15.4); WBC 4.8 x10E3/uL (3.4-10.8)
== END ==
LOC: M SFHCPLAZ 08:33
PROVIDERS: ATTEND Internal Medicine Infectious Disease
DX: B20 Human immunodeficiency virus [HIV] disease (principal)
CPT/HCPCS: 36415; 80053; 86360; 87536; G0463

== ENCOUNTER → 2020-12-23 | Outpatient (CLI) | payer MEDICARE, MEDICAID ==
[2020-12-23 11:18] LABS: ALBUMIN 3.4 GM/DL (3.2-5.2); BILIRUBIN,TOTAL 0.6 MG/DL (0.2-1.0); CALCIUM LEVEL 8.6 MG/DL (8.5-10.1); CREATININE FOR GFR 1.44 MG/DL (0.70-1.30); GLOMERULAR FILTRATION RATE 54.4 (>56); POTASSIUM SERUM 4.2 MEQ/L (3.5-5.1); TOTAL PROTEIN 6.6 GM/DL (6.4-8.2)
[2020-12-24 17:08] LABS: % CD8 Pos Lymph 40.8 % (12.0-35.5); %CD4 Pos Lymphs 32.7 % (30.8-58.5); ABS Eosinophils 0.1 x10E3/uL (0.0-0.4); ABS Lymphs 1.6 x10E3/uL (0.7-3.1); ABS Monocytes 0.6 x10E3/uL (0.1-0.9); ABS Neutophils 2.9 x10E3/uL (1.4-7.0); Abs CD4 Helper 523 /uL (359-1519); Abs CD8 Suppres 653 /uL (109-897); Eosinophils 2 % (Not Estab.); HCT 44.9 % (37.5-51.0); HGB 15.4 g/dL (13.0-17.7); HIV-1 RNA PCR QUANT 2 LC550285 <20 copies/mL (.); Immature Grans 0 % (Not Estab.); Lymphocytes 30 % (Not Estab.); MCH 31.9 pg (26.6-33.0); MCHC 34.3 g/dL (31.5-35.7); MCV 93 fL (79-97); Monocytes 12 % (Not Estab.); Neutrophils 56 % (Not Estab.); Platelets 260 x10E3/uL (150-450); RBC 4.83 x10E6/uL (4.14-5.80); WBC 5.1 x10E3/uL (3.4-10.8)
== END ==
LOC: M PLALAB 08:12
PROVIDERS: ATTEND Internal Medicine Infectious Disease
DX: B20 Human immunodeficiency virus [HIV] disease (principal); Z23 Encounter for immunization
CPT/HCPCS: 36415; 80053; 86360; 87536; 90682; G0008; G0463

== ENCOUNTER → 2021-04-14 | Outpatient (REF) | payer MEDICARE, MEDICAID ==
[~2021-04-14] MED LIST changes: +LOSA50TA28 PO; -LOSA50TA88 PO
== END ==
LOC: M LAB REF 13:08
PROVIDERS: ATTEND Internal Medicine Nephrology
DX: N18.32 Chronic kidney disease, stage 3b (principal)

== ENCOUNTER → 2021-06-18 | Outpatient (CLI) | payer MEDICARE, MEDICAID ==
[2021-06-18 12:06] LABS: ALBUMIN 3.4 GM/DL (3.2-5.2); BILIRUBIN,TOTAL 0.5 MG/DL (0.2-1.0); CALCIUM LEVEL 8.7 MG/DL (8.5-10.1); CREATININE FOR GFR 1.37 MG/DL (0.70-1.30); GLOMERULAR FILTRATION RATE 57.4 (>56); POTASSIUM SERUM 4.1 MEQ/L (3.5-5.1); TOTAL PROTEIN 6.7 GM/DL (6.4-8.2)
[2021-06-20 12:09] LABS: % CD8 Pos Lymph 38.6 % (12.0-35.5); %CD4 Pos Lymphs 33.6 % (30.8-58.5); ABS Eosinophils 0.1 x10E3/uL (0.0-0.4); ABS Lymphs 1.5 x10E3/uL (0.7-3.1); ABS Monocytes 0.5 x10E3/uL (0.1-0.9); ABS Neutophils 2.5 x10E3/uL (1.4-7.0); Abs CD4 Helper 504 /uL (359-1519); Abs CD8 Suppres 579 /uL (109-897); CD4/CD8 Ratio 0.87 (0.92-3.72); Eosinophils 2 % (Not Estab.); HCT 44.7 % (37.5-51.0); HGB 15.5 g/dL (13.0-17.7); HIV-1 RNA PCR QUANT 2 LC550285 <20 copies/mL (.); Immature Grans 0 % (Not Estab.); Lymphocytes 32 % (Not Estab.); MCH 31.7 pg (26.6-33.0); MCHC 34.7 g/dL (31.5-35.7); MCV 91 fL (79-97); Monocytes 12 % (Not Estab.); Neutrophils 53 % (Not Estab.); Platelets 286 x10E3/uL (150-450); RBC 4.89 x10E6/uL (4.14-5.80); RDW 12.8 % (11.6-15.4); WBC 4.6 x10E3/uL (3.4-10.8)
== END ==
LOC: M PLALAB 08:00
PROVIDERS: ATTEND Internal Medicine Infectious Disease
DX: B20 Human immunodeficiency virus [HIV] disease (principal); L03.116 Cellulitis of left lower limb

== ENCOUNTER → 2021-12-14 | Outpatient (CLI) | payer MEDICARE, MEDICAID ==
[2021-12-14 11:10] LABS: HEMOGLOBIN A1c 5.4 %
[2021-12-14 11:35] LABS: ALBUMIN 3.7 GM/DL (3.2-5.2); BILIRUBIN,TOTAL 0.6 MG/DL (0.2-1.0); CALCIUM LEVEL 8.9 MG/DL (8.5-10.1); CHOLESTEROL RISK RATIO 3.02 (<5); CREATININE FOR GFR 1.68 MG/DL (0.70-1.30); GLOMERULAR FILTRATION RATE 45.4 (>56); POTASSIUM SERUM 4.3 MEQ/L (3.5-5.1); TOTAL PROTEIN 6.9 GM/DL (6.4-8.2)
[2021-12-15 21:08] LABS: % CD8 Pos Lymph 35.7 % (12.0-35.5); %CD4 Pos Lymphs 33.9 % (30.8-58.5); ABS Eosinophils 0.1 x10E3/uL (0.0-0.4); ABS Lymphs 1.2 x10E3/uL (0.7-3.1); ABS Monocytes 0.6 x10E3/uL (0.1-0.9); ABS Neutophils 3.5 x10E3/uL (1.4-7.0); Abs CD4 Helper 407 /uL (359-1519); Abs CD8 Suppres 428 /uL (109-897); CD4/CD8 Ratio 0.95 (0.92-3.72); Eosinophils 2 % (Not Estab.); HCT 47.1 % (37.5-51.0); HGB 16.2 g/dL (13.0-17.7); HIV-1 RNA PCR QUANT 2 LC550285 <20 copies/mL (.); Immature Grans 0 % (Not Estab.); Lymphocytes 22 % (Not Estab.); MCH 31.6 pg (26.6-33.0); MCHC 34.4 g/dL (31.5-35.7); MCV 92 fL (79-97); Monocytes 10 % (Not Estab.); Neutrophils 65 % (Not Estab.); Platelets 284 x10E3/uL (150-450); RBC 5.12 x10E6/uL (4.14-5.80); RDW 12.6 % (11.6-15.4); WBC 5.3 x10E3/uL (3.4-10.8)
== END ==
LOC: M PLALAB 08:28
PROVIDERS: ATTEND Internal Medicine Infectious Disease
DX: B20 Human immunodeficiency virus [HIV] disease (principal); E78.00 Pure hypercholesterolemia, unspecified

== ENCOUNTER → 2022-06-15 | Outpatient (CLI) | payer MEDICARE, MEDICAID ==
[2022-06-15 11:32] LABS: ALBUMIN 3.6 G/DL (3.2-5.2); BILIRUBIN,TOTAL 0.3 MG/DL (0.3-1.2); CALCIUM LEVEL 8.5 MG/DL (8.5-10.1); CREATININE FOR GFR 1.55 MG/DL (0.70-1.30); GLOMERULAR FILTRATION RATE 49.6 (>56); TOTAL PROTEIN 6.9 G/DL (5.7-8.2)
[2022-06-17 06:09] LABS: % CD8 Pos Lymph 36.9 % (12.0-35.5); %CD4 Pos Lymphs 32.9 % (30.8-58.5); ABS Eosinophils 0.1 x10E3/uL (0.0-0.4); ABS Lymphs 1.4 x10E3/uL (0.7-3.1); ABS Monocytes 0.7 x10E3/uL (0.1-0.9); ABS Neutophils 3.1 x10E3/uL (1.4-7.0); Abs CD4 Helper 461 /uL (359-1519); Abs CD8 Suppres 517 /uL (109-897); CD4/CD8 Ratio 0.89 (0.92-3.72); Eosinophils 2 % (Not Estab.); HCT 46.4 % (37.5-51.0); HGB 15.8 g/dL (13.0-17.7); HIV-1 RNA PCR QUANT 2 LC550285 <20 copies/mL (.); Immature Grans 0 % (Not Estab.); Lymphocytes 26 % (Not Estab.); MCHC 34.1 g/dL (31.5-35.7); MCV 91 fL (79-97); Monocytes 12 % (Not Estab.); Neutrophils 59 % (Not Estab.); Platelets 327 x10E3/uL (150-450); RBC 5.09 x10E6/uL (4.14-5.80); RDW 12.6 % (11.6-15.4); WBC 5.2 x10E3/uL (3.4-10.8)
== END ==
LOC: M PLALAB 08:18
PROVIDERS: ATTEND Internal Medicine Infectious Disease
DX: B20 Human immunodeficiency virus [HIV] disease (principal)

== ENCOUNTER → 2022-12-27 | Outpatient (CLI) | payer MEDICARE, MEDICAID ==
[2022-12-27 15:33] LABS: ALBUMIN 3.6 G/DL (3.2-5.2); BILIRUBIN,TOTAL 0.7 MG/DL (0.3-1.2); C REACTIVE PROTEIN QUANTITATIV 8.3 MG/DL (<1.0); CALCIUM LEVEL 8.6 MG/DL (8.5-10.1); CHOLESTEROL RISK RATIO 2.55 (<5); CREATININE FOR GFR 1.53 MG/DL (0.70-1.30); GLOMERULAR FILTRATION RATE 50.4 (>56); HDL CHOLESTEROL 51.6 MG/DL (>40); NON-HDL-C 80.4 MG/DL; POTASSIUM SERUM 4.3 MMOL/L (3.5-5.1); TOTAL PROTEIN 7.1 G/DL (5.7-8.2)
[2022-12-27 16:02] LABS: HEMOGLOBIN A1c 5.3 % (4.0-6.0)
[2022-12-30 06:08] LABS: % CD8 Pos Lymph 36.4 % (12.0-35.5); ABS Eosinophils 0.1 x10E3/uL (0.0-0.4); ABS Lymphs 1.8 x10E3/uL (0.7-3.1); ABS Monocytes 0.8 x10E3/uL (0.1-0.9); ABS Neutophils 5.3 x10E3/uL (1.4-7.0); ANGIOTENSIN 1 CONVERTING ENZYM 59 U/L (14-82); Abs CD4 Helper 612 /uL (359-1519); Abs CD8 Suppres 655 /uL (109-897); CD4/CD8 Ratio 0.93 (0.92-3.72); Eosinophils 1 % (Not Estab.); HCT 48.6 % (37.5-51.0); HIV-1 RNA PCR QUANT 2 LC550285 70 copies/mL (.); HIV-1 RNA PCR QUANT 3 LC550285 1.845 (.); Immature Grans 0 % (Not Estab.); Lymphocytes 22 % (Not Estab.); MCH 30.8 pg (26.6-33.0); MCHC 32.9 g/dL (31.5-35.7); MCV 94 fL (79-97); Monocytes 10 % (Not Estab.); Neutrophils 67 % (Not Estab.); Platelets 266 x10E3/uL (150-450); RBC 5.19 x10E6/uL (4.14-5.80); RDW 13.2 % (11.6-15.4)
== END ==
LOC: M PLALAB 08:48
PROVIDERS: ATTEND Internal Medicine Infectious Disease
DX: B20 Human immunodeficiency virus [HIV] disease (principal); L03.115 Cellulitis of right lower limb; E78.2 Mixed hyperlipidemia; Z79.899 Other long term (current) drug therapy

== ENCOUNTER → 2023-01-13 | Outpatient (CLI) | payer MEDICARE, MEDICAID ==
[2023-01-14 17:08] LABS: HIV-1 RNA PCR QUANT 2 LC550285 <20 copies/mL (.)
== END ==
LOC: M PLALAB 07:35
PROVIDERS: ATTEND Internal Medicine Infectious Disease
DX: B20 Human immunodeficiency virus [HIV] disease (principal)

== ENCOUNTER → 2023-05-11 | Outpatient (CLI) | payer MEDICARE, MEDICAID | LOC: M RAD 09:26 | PROVIDERS: ATTEND Internal Medicine Infectious Disease | DX: L03.115 Cellulitis of right lower limb (principal); R22.41 Localized swelling, mass and lump, right lower limb ==

== ENCOUNTER → 2023-08-22 | Outpatient (CLI) | payer MEDICARE, MEDICAID ==
[2023-08-22 11:30] LABS: ALBUMIN 3.4 G/DL (3.2-5.2); BILIRUBIN,TOTAL 0.5 MG/DL (0.3-1.2); CALCIUM LEVEL 8.6 MG/DL (8.5-10.1); CHOLESTEROL RISK RATIO 2.98 (<5); CREATININE FOR GFR 1.35 MG/DL (0.70-1.30); HDL CHOLESTEROL 41.9 MG/DL (>40); LDL CHOLESTEROL 67.3 MG/DL (<100); NON-HDL-C 83.1 MG/DL; POTASSIUM SERUM 4.6 MMOL/L (3.5-5.1); TOTAL PROTEIN 6.5 G/DL (5.7-8.2)
[2023-08-24 10:14] LABS: % CD4+ LYMPHS 34.2 % (30.8-58.5); ABSOLUTE CD4 HELPER 513 /uL (359-1519); BASOPHILS 1 % (Not Estab.); EOSINOPHILS 3 % (Not Estab.); EOSINOPHILS ABSOLUTE 0.1 x10E3/uL (0.0-0.4); HCT 47.8 % (37.5-51.0); HGB 15.8 g/dL (13.0-17.7); LYMPHOCYTES 38 % (Not Estab.); LYMPHOCYTES ABSOLUTE 1.5 x10E3/uL (0.7-3.1); MCH 31.7 pg (26.6-33.0); MCHC 33.1 g/dL (31.5-35.7); MCV 96 fL (79-97); MONOCYTES 20 % (Not Estab.); MONOCYTES ABSOLUTE 0.7 x10E3/uL (0.1-0.9); NEUTROPHILS 38 % (Not Estab.); NEUTROPHILS ABSOLUTE 1.4 x10E3/uL (1.4-7.0); PLT 275 x10E3/uL (150-450); RBC 4.98 x10E6/uL (4.14-5.80); WBC 3.8 x10E3/uL (3.4-10.8)
[2023-08-29 08:49] LABS: HIV-1 RNA PCR QUANT 2 <20 DETECTED copies/mL (NOT DETECTED); HIV-1 RNA PCR QUANT 3 <1.30 DETECTED (NOT DETECTED)
== END ==
LOC: M PLALAB 08:17
PROVIDERS: ATTEND Internal Medicine Infectious Disease
DX: B20 Human immunodeficiency virus [HIV] disease (principal); E78.2 Mixed hyperlipidemia

== ENCOUNTER → 2023-11-22 | Outpatient (CLI) | payer MEDICARE, MEDICAID ==
[2023-11-22 11:58] LABS: ALBUMIN 3.6 G/DL (3.2-5.2); BILIRUBIN,TOTAL 0.5 MG/DL (0.3-1.2); CALCIUM LEVEL 9.5 MG/DL (8.5-10.1); CREATININE FOR GFR 1.5 MG/DL (0.70-1.30); GLOMERULAR FILTRATION RATE 51.4 (>56); POTASSIUM SERUM 4.7 MMOL/L (3.5-5.1); TOTAL PROTEIN 6.7 G/DL (5.7-8.2)
[2023-11-23 16:09] LABS: % CD4+ LYMPHS 30.8 % (30.8-58.5); ABSOLUTE CD4 HELPER 493 /uL (359-1519); BASOPHILS 0 % (Not Estab.); EOSINOPHILS 2 % (Not Estab.); EOSINOPHILS ABSOLUTE 0.1 x10E3/uL (0.0-0.4); HCT 49.3 % (37.5-51.0); LYMPHOCYTES 34 % (Not Estab.); LYMPHOCYTES ABSOLUTE 1.6 x10E3/uL (0.7-3.1); MCH 31.9 pg (26.6-33.0); MCHC 32.5 g/dL (31.5-35.7); MCV 98 fL (79-97); MONOCYTES 13 % (Not Estab.); MONOCYTES ABSOLUTE 0.6 x10E3/uL (0.1-0.9); NEUTROPHILS 51 % (Not Estab.); NEUTROPHILS ABSOLUTE 2.3 x10E3/uL (1.4-7.0); PLT 274 x10E3/uL (150-450); RBC 5.02 x10E6/uL (4.14-5.80); RDW 12.7 % (11.6-15.4); WBC 4.6 x10E3/uL (3.4-10.8)
== END ==
LOC: M PLALAB 08:06
PROVIDERS: ATTEND Internal Medicine Infectious Disease
DX: B20 Human immunodeficiency virus [HIV] disease (principal)

== ENCOUNTER → 2023-12-12 | Outpatient (CLI) | payer MEDICARE, MEDICAID ==
[2023-12-12 13:05] LABS: HEMATOCRIT 47.6 % (42.0-52.0); HEMOGLOBIN 15.7 g/dl (13.5-17.5); MEAN CORPUSCULAR HEMOGLOBIN 31.6 pg (27.0-33.0); MEAN CORPUSCULAR VOLUME 95.8 fl (80.0-96.0); PLATELET COUNT, AUTOMATED 301 10^3/uL (150-450); RED BLOOD COUNT 4.97 10^6/uL (4.30-6.10); WHITE BLOOD COUNT 5.2 10^3/uL (4.0-10.0)
[2023-12-12 13:19] LABS: ERYTHROCYTE SEDIMENTATION RATE 14 mm/hr (0-20)
[2023-12-13 22:38] LABS: CYCLIC CITRULLINATED PEPTIDE < 16 UNITS (<20)
== END ==
LOC: M PLALAB 09:21
PROVIDERS: ATTEND Internal Medicine Infectious Disease
DX: M25.50 Pain in unspecified joint (principal)

== ENCOUNTER 2024-03-05 07:05 | Observation (INO) | payer MEDICARE, MEDICAID ==
[~2024-03-05] VITALS: Ht 175.3 cm; Wt 97.1 kg
[2024-03-05] MEDS ORDERED: ONDA-282 PO (07:15)
[2024-03-05 07:56] LABS: BASO # 0.1 10^3/uL (0.0-0.2); BASO % 0.6 % (0.0-1.0); EOS # 0.2 10^3/uL (0.0-0.5); EOS % 2.4 % (0.0-3.0); HEMATOCRIT 48.5 % (42.0-52.0); HEMOGLOBIN 16.3 g/dl (13.5-17.5); LYMPH # 2.2 10^3/uL (1.5-5.0); LYMPH % 27.1 % (24.0-44.0); MEAN CORPUSCULAR HEMOGLOBIN 31.7 pg (27.0-33.0); MEAN CORPUSCULAR HGB CONC 33.6 g/dl (32.0-36.5); MEAN CORPUSCULAR VOLUME 94.2 fl (80.0-96.0); MONO # 0.9 10^3/uL (0.0-0.8); MONO % 10.6 % (2.0-8.0); NEUTROPHILS # 4.9 10^3/uL (1.5-8.5); NEUTROPHILS % 58.9 % (36.0-66.0); PLATELET COUNT, AUTOMATED 280 10^3/uL (150-450); RED BLOOD COUNT 5.15 10^6/uL (4.30-6.10); WHITE BLOOD COUNT 8.2 10^3/uL (4.0-10.0)
[2024-03-05 08:08] LABS: INR 1.02; PROTHROMBIN TIME 13.7 SECONDS (12.5-14.5)
[2024-03-05 08:36] LABS: CK-MB VALUE MASS < 1.0 NG/ML (<3.6)
[2024-03-05 08:40] LABS: ALBUMIN 3.4 G/DL (3.2-5.2); ALKALINE PHOSPHATASE 119 U/L (40-129); ALT/SGPT 13 U/L (7.0-40); AST/SGOT 18 U/L (<34); BILIRUBIN,DIRECT 0.2 MG/DL (<0.4); BILIRUBIN,TOTAL 0.7 MG/DL (0.3-1.2); BLOOD UREA NITROGEN 20 MG/DL (9-23); CALCIUM LEVEL 9.4 MG/DL (8.5-10.1); CARBON DIOXIDE LEVEL 24 MMOL/L (20-31); CHLORIDE LEVEL 109 MMOL/L (98-107); CREATININE FOR GFR 1.56 MG/DL (0.70-1.30); GLOMERULAR FILTRATION RATE 48.9 (>56); GLUCOSE, FASTING 109 MG/DL (60-100); POTASSIUM SERUM 4.4 MMOL/L (3.5-5.1); SODIUM LEVEL 141 MMOL/L (136-145); THYROID STIMULATING HORMONE 2.274 uIU/ML (0.55-4.78); TOTAL PROTEIN 7.1 G/DL (5.7-8.2)
[2024-03-05 08:41] LABS: FREE T4 0.94 NG/DL (0.89-1.76)
[2024-03-05 08:46] LABS: CPK CREATINE PHOSPHOKINASE 145 U/L (46-171); MB/CK RELATIVE INDEX 0.68 (< OR =4)
[2024-03-05] MEDS ORDERED: ISOVUE-370 76% 100ML VIAL As Ordered ONE (08:49)
[2024-03-05 09:54] LABS: CK-MB VALUE MASS < 1.0 NG/ML (<3.6)
[2024-03-05 09:56] LABS: CPK CREATINE PHOSPHOKINASE 125 U/L (46-171)
[2024-03-05] MEDS ORDERED: THERTAB52 PO (10:13)
[2024-03-05] MEDS ORDERED: VITA-158 PO (10:17)
[2024-03-05] MEDS ORDERED: HOME MED LIST COMPLETE! XX SCH (10:20)
[2024-03-05] MEDS: HEPARIN DRIP 25,000 UNITS in IV 1 EA IV SCH ×2 (12:16→13:08)
[2024-03-05] MEDS ORDERED: HEPARIN SOD (PORCINE) 5000UNITS/ML 1ML VIAL/SYRINGE IV PRN (12:25)
[2024-03-05 13:03] LABS: HEMOGLOBIN 15.4 g/dl (13.5-17.5); MEAN CORPUSCULAR HEMOGLOBIN 31.9 pg (27.0-33.0); MEAN CORPUSCULAR HGB CONC 34.2 g/dl (32.0-36.5); MEAN CORPUSCULAR VOLUME 93.2 fl (80.0-96.0); PLATELET COUNT, AUTOMATED 293 10^3/uL (150-450); RED BLOOD COUNT 4.83 10^6/uL (4.30-6.10); WHITE BLOOD COUNT 7.1 10^3/uL (4.0-10.0)
[2024-03-05] MEDS: HEPARIN SOD (PORCINE) 5000UNITS/ML 1ML VIAL/SYRINGE IV ONE (13:05)
[2024-03-05 15:47] VITALS: BP 136/93; TEMP 98.1; O2SAT 94
[2024-03-05 16:04] LABS: D-DIMER QUANT 1.8 ug/mL (<0.5)
[2024-03-05 16:12] LABS: C REACTIVE PROTEIN QUANTITATIV 3.33 MG/DL (<1.0)
[2024-03-05 17:25] LABS: CREATININE FOR GFR 1.42 MG/DL (0.70-1.30); GLOMERULAR FILTRATION RATE 54.5 (>56)
[2024-03-05] MEDS: ENOXAPARIN 100MG/1ML SYRINGE (J1650 PER 10MG) SC SCH (19:00)
[2024-03-05] MEDS ORDERED: ONDANSETRON 4MG ORAL DISINTEGRATING TAB PO PRN (20:25)
[2024-03-05 21:20] VITALS: BP 137/91; TEMP 98.4; O2SAT 94
[2024-03-05] MEDS: ATORVASTATIN 20 MG TAB PO SCH (21:44)
[2024-03-05 21:45] VITALS: BP 136/93
[2024-03-05] MEDS: LOSARTAN 50MG TABLET PO SCH (21:45)
[2024-03-06 04:00] VITALS: BP 142/96; TEMP 98.1; O2SAT 92
[2024-03-06] MEDS: APIXABAN 5 MG TAB (ELIQUIS) PO SCH (08:33)
[2024-03-06 08:48] LABS: BASO % 0.5 % (0.0-1.0); EOS # 0.2 10^3/uL (0.0-0.5); EOS % 2.8 % (0.0-3.0); HEMATOCRIT 49.1 % (42.0-52.0); HEMOGLOBIN 16.1 g/dl (13.5-17.5); LYMPH # 1.8 10^3/uL (1.5-5.0); LYMPH % 24.7 % (24.0-44.0); MEAN CORPUSCULAR HEMOGLOBIN 30.8 pg (27.0-33.0); MEAN CORPUSCULAR HGB CONC 32.8 g/dl (32.0-36.5); MEAN CORPUSCULAR VOLUME 94.1 fl (80.0-96.0); MONO # 0.8 10^3/uL (0.0-0.8); MONO % 10.7 % (2.0-8.0); NEUTROPHILS # 4.5 10^3/uL (1.5-8.5); PLATELET COUNT, AUTOMATED 259 10^3/uL (150-450); RED BLOOD COUNT 5.22 10^6/uL (4.30-6.10); WHITE BLOOD COUNT 7.4 10^3/uL (4.0-10.0)
[2024-03-06 09:09] LABS: ALBUMIN 3.4 G/DL (3.2-5.2); BILIRUBIN,TOTAL 0.6 MG/DL (0.3-1.2); CALCIUM LEVEL 9.3 MG/DL (8.5-10.1); CREATININE FOR GFR 1.39 MG/DL (0.70-1.30); GLOMERULAR FILTRATION RATE 55.9 (>56); POTASSIUM SERUM 4.4 MMOL/L (3.5-5.1); TOTAL PROTEIN 6.9 G/DL (5.7-8.2)
[2024-03-06 10:21] LABS: INR 1.03; PARTIAL THROMBOPLASTIN TIME 31.1 SECONDS (24.8-34.2); PROTHROMBIN TIME 13.8 SECONDS (12.5-14.5)
[2024-03-06] MEDS ORDERED: ELIQ5TAB PO (10:33)
[2024-03-06 13:04] LABS: DRVV SCREEN 46.7 SECONDS
[2024-03-06 13:13] LABS: PTT LUPUS TYPE ANTICOAG SCREEN 1.14 (0-1.20)
[2024-03-08 08:17] LABS: ANA SCREEN, IFA NEGATIVE (NEGATIVE)
[2024-03-08 15:48] LABS: CARDIOLIPIN IGA ANTIBODY 6.4 APL-U/mL (<20.0); CARDIOLIPIN IGG ANTIBODY < 2.0 GPL-U/mL (<20.0); CARDIOLIPIN IGM ANTIBODY < 2.0 MPL-U/mL (<20.0)
[2024-03-09 01:19] LABS: PROTEIN C FUNCTIONAL ACTIVITY 140 % normal (70-180); PROTEIN S FUNCTIONAL ACTIVITY 87 % normal (70-150)
[2024-03-09 01:53] LABS: ANTI THROMBIN 3 ANTIGEN IMMUNO 76 % normal (80-120); ANTI THROMBIN 3 FUNCT ACTIVITY 74 % normal (80-135)
[2024-03-13] MEDS ORDERED: APIXABAN 5 MG TAB (ELIQUIS) PO SCH (09:00)
[2024-03-13 16:42] LABS: FACTOR II PROTHROMBIN GENE AN NEGATIVE
[2024-03-13 19:32] LABS: FACTOR V LEIDEN FOR MEDINET NEGATIVE
== END 2024-03-06 12:08 | disposition home or self-care (01) ==
LOC: M ED 07:05 → M ED INP 12:19 → M MSPAV 15:47
PROVIDERS: ADMIT Student in an Organized Health Care Education/Training Program; ATTEND Student in an Organized Health Care Education/Training Program
DX: I26.99 Other pulmonary embolism without acute cor pulmonale (principal); B20 Human immunodeficiency virus [HIV] disease; I82.432 Acute embolism and thrombosis of left popliteal vein; N18.30 Chronic kidney disease, stage 3 unspecified; I12.9 Hypertensive chronic kidney disease with stage 1 through stage 4 chronic kidney disease, or unspecified chronic kidney disease; Z79.899 Other long term (current) drug therapy; R06.02 Shortness of breath
CPT/HCPCS: 36415; 71046; 71275; 80048; 80053; 80076; 81240; 81241; 82550; 82553; 82565; 83735; 83880; 84439; 84443; 84484; 85025; 85027; 85300; 85301; 85303; 85305; 85379; 85384; 85610; 85730; 86038; 86140; 86147; 87486; 87581; 87633; 87798; 93005; 93041; 93970; 94760; 96374; 96376; 99285; G0378; Q9967

== ENCOUNTER → 2024-04-03 | Outpatient (CLI) | payer MEDICARE, MEDICAID ==
[~2024-04-03] MED LIST changes: +ELIQ5TAB PO; +ONDA-282 PO; +VITA-158 PO
== END ==
LOC: M WHC 10:18
PROVIDERS: ATTEND Internal Medicine Infectious Disease
DX: I82.432 Acute embolism and thrombosis of left popliteal vein (principal)

== ENCOUNTER → 2024-04-10 | Outpatient (CLI) | payer MEDICARE, MEDICAID ==
[2024-04-10 10:00] LABS: BASO % 0.7 % (0.0-1.0); EOS # 0.2 10^3/uL (0.0-0.5); EOS % 3.1 % (0.0-3.0); HEMATOCRIT 46.8 % (42.0-52.0); HEMOGLOBIN 15.7 g/dl (13.5-17.5); LYMPH # 1.7 10^3/uL (1.5-5.0); LYMPH % 31.5 % (24.0-44.0); MEAN CORPUSCULAR HEMOGLOBIN 31.2 pg (27.0-33.0); MEAN CORPUSCULAR HGB CONC 33.5 g/dl (32.0-36.5); MONO # 0.7 10^3/uL (0.0-0.8); MONO % 12.9 % (2.0-8.0); NEUTROPHILS # 2.8 10^3/uL (1.5-8.5); NEUTROPHILS % 51.6 % (36.0-66.0); PLATELET COUNT, AUTOMATED 277 10^3/uL (150-450); RED BLOOD COUNT 5.03 10^6/uL (4.30-6.10); WHITE BLOOD COUNT 5.4 10^3/uL (4.0-10.0)
[2024-04-10 10:16] LABS: PSA SCREENING 0.73 NG/ML (< 4.00)
[2024-04-10 10:20] LABS: ALBUMIN 3.6 G/DL (3.2-5.2); BILIRUBIN,TOTAL 0.6 MG/DL (0.3-1.2); CALCIUM LEVEL 8.9 MG/DL (8.5-10.1); CHOLESTEROL RISK RATIO 2.67 (<5); CREATININE FOR GFR 1.45 MG/DL (0.70-1.30); GLOMERULAR FILTRATION RATE 53.2 (>56); HDL CHOLESTEROL 47.1 MG/DL (>40); LDL CHOLESTEROL 63.3 MG/DL (<100); NON-HDL-C 78.9 MG/DL; POTASSIUM SERUM 4.1 MMOL/L (3.5-5.1); TOTAL PROTEIN 6.8 G/DL (5.7-8.2)
== END ==
LOC: M PLALAB 07:43
PROVIDERS: ATTEND Nurse Practitioner Family
DX: I10 Essential (primary) hypertension (principal); Z12.5 Encounter for screening for malignant neoplasm of prostate; E78.2 Mixed hyperlipidemia

== ENCOUNTER → 2024-04-16 | Outpatient (CLI) | payer MEDICARE, MEDICAID | LOC: M CARPUL 15:03 | PROVIDERS: ATTEND Internal Medicine Pulmonary Disease | DX: I26.94 Multiple subsegmental thrombotic pulmonary emboli without acute cor pulmonale (principal) ==

== ENCOUNTER 2024-04-27 13:44 | Emergency (ER) | payer MEDICARE, MEDICAID ==
[~2024-04-27] VITALS: Ht 175.3 cm; Wt 99.8 kg
[2024-04-27 15:35] LABS: BASO % 0.5 % (0.0-1.0); EOS # 0.1 10^3/uL (0.0-0.5); EOS % 2.3 % (0.0-3.0); HEMATOCRIT 44.7 % (42.0-52.0); HEMOGLOBIN 15.2 g/dl (13.5-17.5); LYMPH # 1.8 10^3/uL (1.5-5.0); LYMPH % 31.9 % (24.0-44.0); MEAN CORPUSCULAR HEMOGLOBIN 31.9 pg (27.0-33.0); MEAN CORPUSCULAR VOLUME 93.7 fl (80.0-96.0); MONO # 0.8 10^3/uL (0.0-0.8); MONO % 14.2 % (2.0-8.0); NEUTROPHILS # 2.8 10^3/uL (1.5-8.5); NEUTROPHILS % 50.9 % (36.0-66.0); PLATELET COUNT, AUTOMATED 275 10^3/uL (150-450); RED BLOOD COUNT 4.77 10^6/uL (4.30-6.10); WHITE BLOOD COUNT 5.6 10^3/uL (4.0-10.0)
[2024-04-27 15:41] LABS: ERYTHROCYTE SEDIMENTATION RATE 12 mm/hr (0-20)
[2024-04-27 15:48] LABS: INR 0.99; PARTIAL THROMBOPLASTIN TIME 30.8 SECONDS (24.8-34.2); PROTHROMBIN TIME 13.4 SECONDS (12.5-14.5)
[2024-04-27 16:02] LABS: ALBUMIN 3.4 G/DL (3.2-5.2); BILIRUBIN,DIRECT 0.1 MG/DL (<0.4); BILIRUBIN,TOTAL 0.3 MG/DL (0.3-1.2); C REACTIVE PROTEIN QUANTITATIV 1.51 MG/DL (<1.0); CALCIUM LEVEL 8.8 MG/DL (8.5-10.1); CREATININE FOR GFR 1.38 MG/DL (0.70-1.30); GLOMERULAR FILTRATION RATE 56.3 (>56); POTASSIUM SERUM 4.1 MMOL/L (3.5-5.1); TOTAL PROTEIN 6.8 G/DL (5.7-8.2)
[2024-04-27 16:13] LABS: PROCALCITONIN 0.05 ng/ml
[2024-04-27 18:46] VITALS: BP 150/97; TEMP 98.2; O2SAT 97
== END 2024-04-27 20:30 | disposition left against medical advice (07) ==
LOC: M ED 13:44
DX: Z53.21 Procedure and treatment not carried out due to patient leaving prior to being seen by health care provider (principal)

== ENCOUNTER → 2024-05-22 | Outpatient (CLI) | payer MEDICARE, MEDICAID ==
[2024-05-22 12:41] LABS: ALBUMIN 3.5 G/DL (3.2-5.2); BILIRUBIN,TOTAL 0.5 MG/DL (0.3-1.2); CALCIUM LEVEL 8.6 MG/DL (8.5-10.1); CREATININE FOR GFR 1.34 MG/DL (0.70-1.30); GLOMERULAR FILTRATION RATE 58.3 (>56); POTASSIUM SERUM 4.6 MMOL/L (3.5-5.1); TOTAL PROTEIN 6.9 G/DL (5.7-8.2)
[2024-05-23 15:11] LABS: % CD4+ LYMPHS 33.4 % (30.8-58.5); ABSOLUTE CD4 HELPER 468 /uL (359-1519); BASOPHILS 1 % (Not Estab.); EOSINOPHILS 4 % (Not Estab.); EOSINOPHILS ABSOLUTE 0.2 x10E3/uL (0.0-0.4); HCT 46.9 % (37.5-51.0); HGB 15.5 g/dL (13.0-17.7); Immature Grans 0 % (Not Estab.); LYMPHOCYTES 34 % (Not Estab.); LYMPHOCYTES ABSOLUTE 1.4 x10E3/uL (0.7-3.1); MCH 31.1 pg (26.6-33.0); MCV 94 fL (79-97); MONOCYTES 18 % (Not Estab.); MONOCYTES ABSOLUTE 0.8 x10E3/uL (0.1-0.9); NEUTROPHILS 43 % (Not Estab.); NEUTROPHILS ABSOLUTE 1.9 x10E3/uL (1.4-7.0); PLT 250 x10E3/uL (150-450); RBC 4.99 x10E6/uL (4.14-5.80); RDW 12.6 % (11.6-15.4); WBC 4.3 x10E3/uL (3.4-10.8)
== END ==
LOC: M PLALAB 08:10
PROVIDERS: ATTEND Internal Medicine Infectious Disease
DX: B20 Human immunodeficiency virus [HIV] disease (principal)

== ENCOUNTER → 2024-11-26 | Outpatient (CLI) | payer MEDICARE, MEDICAID ==
[2024-11-26 13:04] LABS: BASO # 0.0 10^3/uL (0.0-0.2); BASO % 0.6 % (0.0-1.0); EOS # 0.1 10^3/uL (0.0-0.5); EOS % 1.7 % (0.0-3.0); LYMPH # 1.4 10^3/uL (1.5-5.0); LYMPH % 29.4 % (24.0-44.0); MONO # 0.6 10^3/uL (0.0-0.8); MONO % 12.7 % (2.0-8.0); NEUTROPHILS # 2.7 10^3/uL (1.5-8.5); NEUTROPHILS % 55.2 % (36.0-66.0); PLATELET COUNT, AUTOMATED 276 10^3/uL (150-450)
[2024-11-26 13:33] LABS: ALT/SGPT 21.0 U/L (7.0-40); AST/SGOT 21.0 U/L (<34); CALCIUM LEVEL 8.8 MG/DL (8.5-10.1); CARBON DIOXIDE LEVEL 28.0 MMOL/L (20-31); CHLORIDE LEVEL 107.0 MMOL/L (98-107); CHOLESTEROL LEVEL 137.0 MG/DL (<200); CHOLESTEROL RISK RATIO 2.64 (<5); CREATININE FOR GFR 1.53 MG/DL (0.70-1.30); GLOMERULAR FILTRATION RATE 52.4 (>56); LDL CHOLESTEROL 73.0 MG/DL (<100); MAGNESIUM LEVEL 2.0 MG/DL (1.8-2.4); NON-HDL-C 85.2 MG/DL; POTASSIUM SERUM 5.2 MMOL/L (3.5-5.1); PSA SCREENING 1.05 NG/ML (< 4.00); SODIUM LEVEL 139.0 MMOL/L (136-145); TRIGLYCERIDES LEVEL 61.0 MG/DL (<150)
[2024-11-26 13:35] LABS: FREE T4 1.17 NG/DL (0.89-1.76)
[2024-11-26 13:38] LABS: TOTAL 25(OH) VITAMIN D 48.0 NG/ML (20.0-100.0)
== END ==
LOC: M PLALAB 08:21
PROVIDERS: ATTEND Nurse Practitioner Family
DX: Z00.00 Encounter for general adult medical examination without abnormal findings (principal); E78.2 Mixed hyperlipidemia; I10 Essential (primary) hypertension; E55.9 Vitamin D deficiency, unspecified; B20 Human immunodeficiency virus [HIV] disease; Z12.5 Encounter for screening for malignant neoplasm of prostate
CPT/HCPCS: 36415; 80053; 80061; 82306; 83735; 84439; 84443; 85025; 86360; 87536; G0103